=== PATIENT | male | born 1975 | race Two or more races ===

== ENCOUNTER 2025-08-04 00:26 | Emergency (ER) | payer BC, OTHER ==
[~2025-08-04] VITALS: Ht 188 cm; Wt 118.8 kg
[2025-08-04 00:55] VITALS: BP 134/93; PULSE 87; RESP 16; TEMP 98.2; O2SAT 96
--- NOTE | 2025-08-04 00:58 | ED.PDOC ---
HPI (NEURO) HPI Comments 49-YEAR-OLD MALE PRESENTS TO ER WITH COMPLAINTS OF HEADACHE X1 DAY. PATIENT REPORTS HE DEVELOPED SUDDEN ONSET OF HEADACHE WITH ASSOCIATED NAUSEA AND PHOTOPHOBIA AT 3:00 P.M. PRIOR TO ARRIVAL TO ER. HE RATES HIS CURRENT PAIN AN 8/10 DIFFUSE TO TOP OF SCALP AND REPORTS THAT HE DID TAKE IBUPROFEN FOR HIS PAIN WITHOUT RELIEF. PATIENT PRESENTS TO ER AMBULATORY ON ARRIVAL, ALERT ORIENTED X4, WITH STEADY GAIT, IN NO DISTRESS. DENIES FEVER, RECENT ILLNESS, VOMITING, DIZZINESS, VISION CHANGES, CONFUSION, NECK PAIN, HEAD INJURY OR ANY FURTHER SYMPTOMS/COMPLAINTS Chief Complaint: Headache Time Seen by MD: 00:36 Primary Care Provider: UNKNOWN Reviewed Notes: Nurses Notes, Medications, Allergies Information Source: Patient Mode of Arrival: Ambulatory Past Medical History PAST MEDICAL HISTORY: Denies Surgical History: Denies all surgeries Family History Family History: Unknown Social History Smoker: Non-Smoker Alcohol: Denies ETOH Use Drugs: Denies Drug Use Lives In: Home Constitutional: denies: chills, diaphoresis, fatigue, fever, malaise, sweats, weakness, others EENTM: denies: blurred vision, double vision, ear bleeding, ear discharge, ear drainage, ear pain, ear ringing, eye pain, eye redness, hearing loss, mouth pain, mouth swelling, nasal discharge, nose bleeding, nose congestion, nose pain, photophobia, tearing, throat pain, throat swelling, voice changes, others Respiratory: denies: cough, hemoptysis, orthopnea, SOB at rest, shortness of breath, SOB with excertion, stridor, wheezing, others Cardiovascular: denies: chest pain, dizzy spells, diaphoresis, Dyspnea on exertion, edema, irregular heart beat, left arm pain, lightheadedness, palpitations, PND, syncope, others Gastrointestinal: denies: abdomen distended, abdominal pain, blood streaked bowels, constipated, diarrhea, dysphagia, difficulty swallowing, hematemesis, melena, nausea, poor appetite, poor fluid intake, rectal bleeding, rectal pain, vomiting, others Genitourinary: denies: burning, dysuria, flank pain, frequency, hematuria, incontinence, penile discharge, penile sore, pain, testicle pain, testicle swelling, urgency, others Neurological: reports: others (As stated in HPI) Musculoskeletal: denies: back pain, gout, joint pain, joint swelling, muscle pain, muscle stiffness, neck pain, others Integumetry: denies: bruises, change in color, change in hair/nails, dryness, laceration, lesions, lumps, rash, wounds, others Allergic/Immunocompromised: denies: Difficulty Healing, Frequent Infections, Hives, Itching, others Hematologic/Lymphatic: denies: anemia, blood clots, easy bleeding, easy bruising, swollen glands, others Endocrine: denies: excessive hunger, excessive sweating, excessive thirst, excessive urination, flushing, intolerance to cold, intolerance to heat, unexplained weight gain, unexplained weight loss, others Psychiatric: denies: anxiety, bipolar disorder, depression, hopeless, panic disorder, schizophrenia, sleepless, suicidal, others Physical Exam General Appearance: No Apparent Distress, Obese HEENT: Normal ENT Inspection, PERRL/EOMI, Pharynx Normal, TMs Normal Neck: Full Range of Motion, Non-Tender, Normal Respiratory: Chest Non-Tender, Lungs Clear, No Accessory Muscle Use, No Respiratory Distress, Normal Breath Sounds Cardiovascular: No Murmur, No Gallop, Regular Rate/Rhythm Breast Exam: Deferred Gastrointestinal: NOT DONE Genitalia: Deferred Pelvic: Deferred Rectal: Deferred Extremities: Normal capillary refill, Normal range of motion Neurologic: Alert, 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 Was a procedure done?: No Sedation Sedation?: No Differential Diagnosis (SZ) Headache: Cluster, Subarachnoid Hemorrhage, Subdural Hemorrhage, Mass Lesion X-Ray, Labs, Meds, VS Vital Signs Date Time Temp Pulse Resp B/P (MAP) Pulse Ox O2 Delivery O2 Flow Rate FiO2 08/04/25 00:55 98.2 87 16 134/93 (107) 96 98.2 08/04/25 00:28 98.2 87 16 134/93 96 98.2 Current Medications Medications (Trade) Dose Ordered Sig/Narayan Route Start Time Stop Time Status Last Admin Acetaminophen/ Codeine Phosphate (Tylenol W/Cod #3 Tablet) 1 tab ONCE ONCE PO 08/04/25 01:00 08/04/25 01:01 DC 08/04/25 01:02 Ondansetron HCl (Zofran Po) 4 mg ONCE ONCE PO 08/04/25 01:00 08/04/25 01:01 DC 08/04/25 01:02 PATIENT: PAUL ROMEOACCT: [id number]: [id number] : 1975 LOC: ER ROOM / BED: / AGE / SEX: 49 / M ADM STATUS: REG ER SERVICE [id number] ORDERING PHYSICIAN: JEAN CARLOS AUSTIN PROCEDURE(s): HWOCT - HEAD WITHOUT CONTRAST REASON: HEADACHE ORDER NUMBER(s): [id number], ACCESSION NUMBER(s): [id number] EXAM: CT HEAD WITHOUT CONTRAST INDICATION: HEADACHE TECHNIQUE: CT of the head without intravenous contrast. Radiation Dose : 1. Head: CT Dose: CTDI volume is 67.44 mGy. Dose-length product is 1215.62 mGy*cm The dose indicators for CT are the volume Computed Tomography (CT) Dose Index (CTDIvol) and the Dose Length Product (DLP), and are measured in units of mGy and mGy-cm, respectively. These indicators are not patient dose, but values generated from the CT scanner acquisition factors. The report includes radiation exposure data for exposures received during this examination. COMPARISON: None FINDINGS: Brain: No acute hemorrhage, mass effect, or cerebral edema. CSF Spaces: Size and morphology within normal limits. Bones/Soft Tissues: No acute findings. Orbits/Sinuses/Mastoids: Unremarkable as visualized. IMPRESSION: 1. No acute intracranial abnormality. Radiation optimization: All CT scans at this facility use at least one of these dose optimization techniques: automated exposure control mA and/or kV adjustment per patient size (includes targeted exams where dose is matched to clinical indication) or iterative reconstruction. ATED BY: HERNESTO MONTEJO MD DICTATED DATE/TIME: 08/04/25353 SIGNED BY: HERNESTO MONTEJO MD SIGNED DATE/TIME: 08/04/25353 CC: CT head without contrast reviewed Tylenol #3 one tablet p.o. ordered Zofran 4 mg p.o. ordered Toradol 60 mg IM ordered Patient had improvement in symptoms and in no distress prior to discharge Advised to drink plenty of fluids Advised to follow up with PCP in 1-2 days Patient verbalized understanding and agreeable with current plan of care Advised to return to ER immediately if symptoms worsen Images Reviewed?: Images reviewed and evaluated by me Time of 1ST Reevaluation: 00:58 Reevaluation 1ST: N/A Time of 2ND Reevaluation: 04:04 Reevaluation 2ND: Improved Patient Education/Counseling: Diagnosis, Treatment, Prognosis, Need For Follow Up Family Education/Counseling: No Family Present Departure 1 Departure Time of Disposition: 04:05 Impression: Primary Impression: Tension headache Disposition: 01 HOME / SELF CARE / HOMELESS Condition: Stable e-Prescriptions Ondansetron Odt 4MG Tab (ZOFRAN PO) 4 Mg Tb 4 MG PO TID PRN, #14 TAB 0 Refills ODT TAB-DISSOLVE IN MOUTH, THEN SWALLOW Prov: JEAN CARLOS AUSTIN 08/04/25 Hydrocodone-Acetaminophen (Hydrocodone Bitartrate/AC 5-325 mg) 1 Tab Tab 1 TAB PO Q6HPRN, #8 TAB 0 Refills Prov: JEAN CARLOS AUSTIN 08/04/25 Ibuprofen (Ibuprofen) 800 Mg Tab 1 TAB PO TID PRN, #30 TAB 0 Refills Prov: JEAN CARLOS AUSTIN 08/04/25 Discharged With: Friend Critical Care Note Critical Care Time?: No Stability Stability form required: No Heart Score Heart Score: Heart Score Response (Comments) Value History N/A 0 EKG N/A 0 Age N/A 0 Risk Factors N/A 0 Troponin N/A 0 Total 0 JEAN CARLOS AUSTIN Aug 04, 2025 00:58
[2025-08-04] MEDS: ACETAMINOPHEN/CODEINE#3 (300/30mg) TAB PO ONE (01:02)
[2025-08-04] MEDS: ONDANSETRON ODT 4 MG TAB PO ONE (01:02)
--- NOTE | 2025-08-04 03:57 | DVH ---
EXAM: CT HEAD WITHOUT CONTRAST INDICATION: HEADACHE TECHNIQUE: CT of the head without intravenous contrast. Radiation Dose : 1. Head: CT Dose: CTDI volume is 67.44 mGy. Dose-length product is 1215.62 mGy*cm The dose indicators for CT are the volume Computed Tomography (CT) Dose Index (CTDIvol) and the Dose Length Product (DLP), and are measured in units of mGy and mGy-cm, respectively. These indicators are not patient dose, but values generated from the CT scanner acquisition factors. The report includes radiation exposure data for exposures received during this examination. COMPARISON: None FINDINGS: Brain: No acute hemorrhage, mass effect, or cerebral edema. CSF Spaces: Size and morphology within normal limits. Bones/Soft Tissues: No acute findings. Orbits/Sinuses/Mastoids: Unremarkable as visualized. IMPRESSION: 1. No acute intracranial abnormality. Radiation optimization: All CT scans at this facility use at least one of these dose optimization techniques: automated exposure control mA and/or kV adjustment per patient size (includes targeted exams where dose is matched to clinical indication) or iterative reconstruction.
[2025-08-04] MEDS ORDERED: HYDR-4902 PO (04:02)
[2025-08-04] MEDS ORDERED: IBUP-1456 PO (04:02)
[2025-08-04] MEDS ORDERED: ZOFR4T PO (04:02)
[2025-08-04] MEDS: KETOROLAC TROMETH 60MG/2ML VIAL IM ONE (04:06)
== END 2025-08-04 04:10 | disposition home or self-care (01) ==
LOC: ER 00:26
DX: G44.209 Tension-type headache, unspecified, not intractable (principal)
CPT/HCPCS: 70450; 96372; 99285; J1885; Q0162